=== PATIENT | female | born 1985 | race Caucasian/White ===

== ENCOUNTER 2025-01-14 01:15 | Emergency (ER) | payer BC ==
--- OUTSIDE RECORDS SUMMARY | 2025-01-14 01:18 | XMS REPORT | Continuity of Care Document ---
Author Name Unknown Address [address] [facility] [place] [address] Organization [facility] [place] Address [address] 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 Phone [email or web address] Attending Clinician Andrewa ble [facility], Acute [facility] Attending Clinician Jung Colindres Attending Clinician [phone] JUNG GILLILAND Attending Clinician Unavailable [email or web address] Admitting Clinician Unavaila ble Problems Condition Name Condition Details Condition Category Status Onset Date Resolution Date Last Treatment Date Treating Clinician Comments Source Dysmenorrh ea Dysmenorrh ea Disease Active 02-06 00:00: 00 [facility] Well woman exam Well woman exam Disease Active 02-06 00:00: 00 [facility] Contracept cari management Contracept cari management Disease Active 06-30 00:00: 00 Overview: ICD10 Diagnosis Term [employer] [facility] Obese Obese Disease Active 06-30 00:00: 00 Overview: ICD10 Diagnosis Term [employer] [facility] Allergies, Adverse Reactions, Alerts Allergy Name Allergy Type Status Severity Reaction(s) Onset Date Inactive Date Treating Clinician Comments Source NO KNOWN ALLERGIE S Drug Class Active [facility] Social History Social Habit Start Date Stop Date Quantity Comments Source Sex Assigned At [facility] Exposure to SARS-CoV-2 (event) Not sure [facility] Alcohol intake 2020-04-04 00:00:00 2020-04-04 00:00:00 [facility] Smoking Status Start Date Stop Date Source Never smoker [facility] Medications Ordered Medication Name Filled Medication Name Start Date Stop Date Current Medication? Ordering Clinician Indication Dosage Frequency Signature (SIG) Comments Components Source amoxicillin -clavulanat e 875-125 mg per tablet 04-04 00:00: 00 04-12 04:59 :00 No [id number] 1{tbl} Take 1 tablet by mouth 2 (two) times daily for 7 days. [facility] norgestimat e-ethinyl estradiol (TRINESSA) 0.18/0.215/ 0.25 mg-35 mcg (28) tablet 02-06 00:00: 00 Yes [id number] 1{tbl} Take 1 Tab by mouth daily. [facility] Vital Signs Vital Name Observation Time Observation Value Comments S ayleen Systolic blood pressure 2020-04-04 17:52:00 112 mm[Hg] [facility] Diastolic blood pressure 2020-04-04 17:52:00 74 mm[Hg] [facility] Heart rate 2020-04-04 17:52:00 68 /min [facility] Body temperature 2020-04-04 17:52:00 36.72 Jeniffer [facility] Respiratory rate 2020-04-04 17:52:00 16 /min [facility] Body height 2020-04-04 17:52:00 162.6 cm [facility] Body weight 2020-04-04 17:52:00 77.111 kg [facility] BMI 2020-04-04 17:52:00 29.18 kg/m2 [facility] Oxygen saturation in Arterial blood by Pulse oximetry 2020-04-04 17:52:00 99 /min [facility] Encounters Start Date/Time End Date/Time Encounter Type Admission Type Attending Clinicians Care Facility Care Department Encounter ID Source 2023-08-21 00:00:00 2023-08-21 00:00:00 Outpatient [email or web address] omar_Juan R [facility] [id number] [facility] 2020-04-04 12:39:11 2020-04-04 13:18:57 [facility], Acute Care Clinic [facility] [id number] [facility] 2020-04-04 12:40:00 2020-04-04 12:40:00 Outpatient JUNG SONG [facility] [id number] [facility]
--- NOTE | 2025-01-14 02:06 | ER ---
Nurse's Notes [facility] Name: Brenda Hampton Age: 39 yrs Sex: Female : 1985 Arrival Date: 01/14/2025 Time: 01:15 Bed DX5 Private MD: Diagnosis: Acute left otitis media without eardrum perforation, acute cough and congestion, acute upper respiratory infection Presentation: 01/14 01:40 Chief complaint: Patient states: LEFT EAR PAIN STARTED 2 DAYS AGO....PAIN WORSE br2 TONIGHT. ALSO STATES SHE HAS BEEN HAVING INTERMITTENT CP. Coronavirus screen: Client denies travel out of the [place] in the last 14 days. Ebola Screen: Patient denies exposure to infectious person. Initial Sepsis Screen: Does the patient meet any 2 criteria? No. Patient's initial sepsis screen is negative. Does the patient have a suspected source of infection? No. Patient's initial sepsis screen is negative. Risk Assessment: Do you want to hurt yourself or someone else? Patient reports no desire to harm self or others. Onset of symptoms was January 12, 2025. 01:40 Method Of Arrival: Ambulatory br2 01:40 Acuity: TADEO 5 br2 01:43 Chief complaint:. br2 Triage Assessment: 01:44 General: Appears in no apparent distress. comfortable, Behavior is calm, cooperative. br2 Pain: Complains of pain in left ear and chest. EENT: Reports pain. 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 - Infectious Disease History:: Denies. - Social history:: Smoking status: Patient/guardian denies using tobacco, the patient reports quitting approximately 4 years ago, Patient uses alcohol, occasionally. Patient/guardian denies using street drugs. - Family history:: not pertinent. Screenin:40 [facility] ED Fall Risk Assessment (Adult) History of falling in the last 3 months, br2 including since admission No falls in past 3 months (0 pts) Confusion or Disorientation No (0 pts) Intoxicated or Sedated No (0 pts) Impaired Gait No (0 pts) Mobility Assist Device Used No (0 pt) Altered Elimination No (0 pt) Score/Fall Risk Level 0 - 2 = Low Risk Oriented to surroundings. Abuse screen: Denies threats or abuse. Denies injuries from another. Nutritional screening: No deficits noted. Tuberculosis screening: No symptoms or risk factors identified. Assessment: 01:40 Reassessment: SEE TRIAGE ASSESSMENT. br2 Vital Signs: 01:40 BP 125 / 95; Pulse 100; Resp 18; Temp 100; Pulse Ox 100% ; Weight 70.31 kg; Height 5 br2 ft. 4 in. ; Pain 6/10; 01:40 Body Mass Index 26.61 (70.31 kg, 162.56 cm) br2 01:40 Pain Scale: Adult br2 [place] Coma Score: 21:41 Eye Response: spontaneous(4). Motor Response: obeys commands(6). Verbal Response: sp4 oriented(5). Total: 15. ED Course: 01:18 Patient arrived in ED. jj6 01:40 Patient has correct armband on for positive identification. Bed in low position. Call br2 light in reach. Provided Education on:. 01:42 Triage completed. br2 02:03 Juan Dietrich MD is Attending Physician. sp4 02:30 Arm band placed on right wrist. br2 02:30 No provider procedures requiring assistance completed. Patient did not have IV access br2 during this emergency room visit. intact, bleeding controlled, No redness/swelling at site. Pressure dressing applied. Administered Medications: 02:33 Drug: Rocephin (cefTRIAXone) IM 1 grams IM once Route: IM; Site: left gluteus; br2 02:33 Follow up: Response: Medication administered at discharge. br2 02:33 Drug: Ibuprofen PO 400 mg PO once Route: PO; br2 02:33 Follow up: Response: No adverse reaction br2 02:33 Drug: Acetaminophen PO 1000 mg PO once Route: PO; br2 02:33 Follow up: Response: No adverse reaction br2 Outcome: 02:06 Discharge ordered by . sp4 02:30 Discharged to home ambulatory, br2 02:30 Condition: good 02:30 Discharge instructions given to patient, Instructed on discharge instructions, follow up and referral plans. Demonstrated understanding of instructions, follow-up care, medications, Prescriptions given X 3, 02:39 Patient left the ED. br2 Signatures: Gianni Danya [email or web address] Juan Dietrich MD MD sp4 Rosalinda Salazar RN RN br2 Corrections: (The following items were deleted from the chart) 01:44 01:40 Chief complaint: Patient states: LEFT EAR PAIN STARTED 2 DAYS AGO....PAIN WORSE br2 TRACY br2 03:46 03:44 Reassessment: SEE TRIAGE ASSESSMENT br2 br2
--- NOTE | 2025-01-14 02:06 | EDPHYS ---
Physician Documentation [facility] Name: Brenda Hampton Age: 39 yrs Sex: Female : 1985 Arrival Date: 01/14/2025 Time: 01:15 Bed DX5 Private MD: ED Physician Juan Dietrich HPI: 01/14 02:04 This 39 yrs old Female presents to ER via Ambulatory with complaints of Ear sp4 Pain. 02:04 2 days of acute L ear pain associated with cough and congestion.. sp4 21:41 Patient presents with 2 days of acute Left ear pain associated with cough and sp4 congestion. 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 - Infectious Disease History:: Denies. - Social history:: Smoking status: Patient/guardian denies using tobacco, the patient reports quitting approximately 4 years ago, Patient uses alcohol, occasionally. Patient/guardian denies using street drugs. - Family history:: not pertinent. ROS: 21:41 Constitutional: Negative for fever, chills, and weight loss, positive for left ear sp4 pain positive for 21:41 All other systems are negative, Exam: 21:41 Constitutional: This is a well developed, well nourished patient who is awake, alert, sp4 and in no acute distress. Head/Face: Normocephalic, atraumatic. Eyes: Pupils equal round and reactive to light, extra-ocular motions intact. Lids and lashes normal. Conjunctiva and sclera are not injected. Cornea within normal limits. Periorbital areas with no swelling, redness, or edema. ENT: Nares patent. No nasal discharge, no septal abnormalities noted. Oropharynx with no redness, swelling, or masses, exudates, or evidence of obstruction, uvula midline. Mucous membranes moist. Left tympanic membrane erythematous and discolored. Right tympanic membrane is normal Neck: Trachea midline, no thyromegaly or masses palpated, and no cervical lymphadenopathy. Supple, full range of motion without nuchal rigidity, or vertebral point tenderness. Chest/axilla: Normal chest wall appearance and motion. Nontender with no deformity. No lesions are appreciated. Cardiovascular: Regular rate and rhythm with a normal S1 and S2. No gallops, murmurs, or rubs. Normal PMI, no JVD. No pulse deficits. Respiratory: Lungs have equal breath sounds bilaterally, clear to auscultation and percussion. No rales, rhonchi or wheezes noted. No increased work of breathing, no retractions or nasal flaring. Abdomen/GI: Soft, with normal bowel sounds. No distension or tympany. No guarding or rebound. No evidence of tenderness throughout. Back: No spinal tenderness. No costovertebral tenderness. Skin: Warm, dry with normal turgor. Normal color with no rashes, no lesions, and no evidence of cellulitis. MS/ Extremity: Pulses equal, no cyanosis. Neurovascular intact. Full, normal range of motion. Neuro: Awake and alert, GCS 15, oriented to person, place, time, and situation. Cranial nerves II-XII grossly intact. Motor strength 5/5 in all extremities. Sensory grossly intact. Psych: Awake, alert, with orientation to person, place and time. Behavior, mood, and affect are within normal limits Vital Signs: 01:40 BP 125 / 95; Pulse 100; Resp 18; Temp 100; Pulse Ox 100% ; Weight 70.31 kg; Height 5 br2 ft. 4 in. ; Pain 6/10; 01:40 Body Mass Index 26.61 (70.31 kg, 162.56 cm) br2 01:40 Pain Scale: Adult br2 [place] Coma Score: 21:41 Eye Response: spontaneous(4). Motor Response: obeys commands(6). Verbal Response: sp4 oriented(5). Total: 15. MDM: 02:04 Medical Screening Exam initiated sp4 21:44 Differential diagnosis: otitis media, otitis externa, ruptured TM, foreign body, acute sp4 otalgia. Data reviewed: vital signs, nurses notes. ED course: Patient improved after medications. Stable for discharge home. Administered Medications: 02:33 Drug: Rocephin (cefTRIAXone) IM 1 grams IM once Route: IM; Site: left gluteus; br2 02:33 Follow up: Response: Medication administered at discharge. br2 02:33 Drug: Ibuprofen PO 400 mg PO once Route: PO; br2 02:33 Follow up: Response: No adverse reaction br2 02:33 Drug: Acetaminophen PO 1000 mg PO once Route: PO; br2 02:33 Follow up: Response: No adverse reaction br2 Disposition: 21:46 Chart complete. sp4 Disposition Summary: 01/14/25 02:06 Discharge Ordered Notes: Location: Home sp4 Problem: new sp4 Symptoms: have improved sp4 Condition: Stable sp4 Diagnosis - Acute left otitis media without eardrum perforation, acute cough and congestion, sp4 acute upper respiratory infection Followup: sp4 - With: Private Physician - When: 7 - 10 days - Reason: Recheck today's complaints Discharge Instructions: - Discharge Summary Sheet sp4 - Otitis Media With Effusion, Adult sp4 Forms: - Patient Portal Instructions sp4 Prescriptions: - cefdinir 300 mg Oral capsule - take 1 capsule ORAL route 2 times per day for 10 days; 20 capsule; Refills: 0, sp4 Product Selection Permitted - dextromethorphan-guaifenesin 20-400 mg Oral tablet - take 1 tablet ORAL route every 6 hours PRN cough; 60 tablet; Refills: 0, sp4 Product Selection Permitted - Ibuprofen 800 mg Oral Tablet - take 1 tablet ORAL route every 8 hours As needed take with food; 30 tablet; sp4 Refills: 0, Product Selection Permitted Signatures: Juan Dietrich MD MD sp4 Rosalinda Salazar RN RN br2 Corrections: (The following items were deleted from the chart) 21:42 02:04 2 days of acute right ear pain associated with cough and congestion.. sp4 sp4
[2025-01-14] MEDS ORDERED: CEFTRIAXONE 1000 MG/VIAL ONE (02:16)
[2025-01-14] MEDS ORDERED: LIDOCAINE 1% MPF 5 ML VIAL ONE (02:17)
[2025-01-14] MEDS ORDERED: ACETAMINOPHEN 500 MG TAB ONE (02:17)
[2025-01-14] MEDS ORDERED: IBUPROFEN 400 MG TAB ONE (02:17)
[2025-01-14 02:45] VITALS: BP 125/95; TEMP 100; O2SAT 100
== END 2025-01-14 02:39 | disposition home or self-care (01) ==
LOC: ER 01:15
DX: H66.92 Otitis media, unspecified, left ear (principal); J06.9 Acute upper respiratory infection, unspecified; R05.9 Cough, unspecified
CPT/HCPCS: J2003; J0696